=== PATIENT | female | born 1990 | race Caucasian/White ===

== ENCOUNTER 2016-10-16 02:03 | Inpatient (IN) | payer OTHER ==
--- NOTE | ~2016-10-16 | PN ---
Unit #: [id number] #: [id number] Patient: LORENA BLUM [id number] [facility] [address] [place] [address] [id number] MR#: [id number] NAME: LORENA BLUM ROOM: 73 Age: 26 Sex: F Admission Date: 10/16/2016 : 1990 Attending Physician: Eddie Cordero M.D. Admitting Physician: Eddie Cordero M.D. Primary Care Physician: Kamaljit Arauz PROGRESS NOTES DATE 10/17/2016. DISCUSSION Lorena continues to have severe withdrawal symptoms, primarily nausea that she complains about today. She also had difficulty sleeping. She is alert and fully oriented. Her memory and concentration are fair to good. Her thought processes are goal directed with no active psychosis. She is equivocal about suicidal ideation today. ASSESSMENT Alcohol dependence. PLAN Continue current treatment plan and precautions. Dictated by... Eddie Cordero M.D. MRH/gz TD: 10/17/2016 13:56 JOB #: [id number] [facility] PROGRESS NOTES Page 1 of 1 X Eddie Cordero MD PROGRESS NOTE
--- NOTE | ~2016-10-16 | PN ---
Unit #: [id number] #: [id number] Patient: LORENA BLUM [id number] [facility] [address] [place] [address] [id number] MR#: [id number] NAME: LORENA BLUM ROOM: P173 Age: 26 Sex: F Admission Date: 10/16/2016 : 1990 Attending Physician: Eddie Cordero M.D. Admitting Physician: Eddie Cordero M.D. Primary Care Physician: Kamaljit Arauz PROGRESS NOTES DATE OF SERVICE: 10/19/2016 DISCUSSION Lorena continues to have esrt-bo-[id number] detox symptoms today. Her mood remains mild lability with a congruent affect. She is alert and fully oriented. Memory and concentration were fair. Thought processes were goal directed and nonpsychotic. EKG was unremarkable. ASSESSMENT Bipolar disorder, polysubstance dependence. PLAN We will draw a lithium level in the morning and continue current medications. Dictated by... Kamaljit Barber/reynaldo TD: 10/20/2016 04:49 JOB #: [id number] [facility] PROGRESS NOTES Page 1 of 1 X Eddie Cordero MD X PROGRESS NOTE
--- NOTE | ~2016-10-16 | PN ---
Unit #: [id number] #: [id number] Patient: LORENA BLUM [id number] [facility] [address] [place] [address] [id number] MR#: [id number] NAME: LORENA BLUM ROOM: P173 Age: 26 Sex: F Admission Date: 10/16/2016 : 1990 Attending Physician: Eddie Cordero M.D. Admitting Physician: Eddie Cordero M.D. Primary Care Physician: Kamaljit Arauz PROGRESS NOTES DATE 10/20/2016 DISCUSSION Lorena continues to complain of anxiety and irritability. Her detox has improved although her hypertension continues to be a problem. She is alert and fully oriented. Her memory and concentration are fair. Her thought processes are goal-directed with no active psychosis. ASSESSMENT Alcohol dependence. Generalized anxiety disorder. PLAN We will initiate treatment with Buspirone and obtain medical consultation for hypertension. Dictated by... Eddie Codrero M.D. [facility]/aden TD: 10/26/2016 10:19 JOB #: [id number] [facility] PROGRESS NOTES Page 1 of 1 X Eddie Cordero MD PROGRESS NOTE
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
--- NOTE | ~2016-10-16 | HP ---
Unit #: [id number] #: [id number] Patient: LORENA LUI [id number] [place] [address] [id number] MR#: [id number] NAME: LORENA LUI ROOM: P173 Age: 26 Sex: F Admission Date: 10/16/2016 : 1990 Attending Physician: Eddie Cordero M.D. Admitting Physician: Eddie Cordero M.D. Primary Care Physician: Papa Byrd M.D. HISTORY AND PHYSICAL HISTORY OF PRESENT ILLNESS Lorena is a 26 year old admitted to [facility] because of her abuse of alcohol. She is detoxing. PAST MEDICAL HISTORY 1. Long history of alcohol abuse. 2. High blood pressure. 3. History of fatty liver. PAST SURGICAL HISTORY Nothing reported. ALLERGIES No known drug allergies. SOCIAL HISTORY Smokes 2 packs per day. Drinks at least 6 beers on a daily basis. Admits to using marijuana daily. FAMILY HISTORY Medically noncontributory. REVIEW OF SYSTEMS CONSTITUTIONAL: No fever or chills. HEENT: Denies any sore throat, ear pain or runny nose. CARDIOVASCULAR: Denies chest pain, irregular heart rhythm or palpitations. CHEST: Denies shortness of breath or cough. No hemoptysis. GASTROINTESTINAL: She does report frequent melena as recent as 1 week ago and hematochezia as recent as 2 months ago. She has never been scoped. ENDOCRINE: Denies history of increased thirst or urination. No recent significant weight loss or gain. GENITOURINARY: Denies dysuria, frequency, or hematuria. SKIN: Denies any rashes. HEMATOLOGIC: Denies history of increased bleeding or bruising. MUSCULOSKELETAL: Denies any hot, swollen joints. No generalized muscle pain. NEUROLOGIC: Denies problems with vision or speech. No frequent, severe headaches. No numbness, tingling or weakness in any extremities. Denies loss of bladder or bowel control. CURRENT MEDICATIONS Detox protocol. Unit #: [id number] #: [id number] Patient: LORENA LUI PHYSICAL EXAMINATION GENERAL: Alert, thin, pale, in no apparent distress. VITAL SIGNS: Blood pressure 115/80, heart rate 100, respirations 16, temperature 98.6. WEIGHT: 125. HEIGHT: 5 feet 5 inches. SKIN: Warm and dry without rash or lesion. HEENT: Normocephalic. TMs not viewed. Oral and nasal passages clear. Conjunctivae clear. PERRLA. EOMs intact. NECK: Supple without lymphadenopathy or thyromegaly. HEART: Regular rate and rhythm without murmur. LUNGS: Clear. ABDOMEN: Soft, nontender. : Not done. EXTREMITIES: No evidence of cyanosis, clubbing or edema. Moves all without focal deficit. NEUROLOGICAL: Grossly within normal limits. Cranial Nerves: II: Visual lui are intact. III, IV AND : Extraocular movements are intact. Pupils are equal, round and reactive to light. V: Facial sensation is grossly normal. VII: Facial movements and expression are normal. VIII: Auditory acuity grossly intact. IX, X: Uvula is midline. Phonation is normal. XI: Patient shrugs shoulders and turns head normally. XII: Tongue protrudes in the midline. Sensory and Motor Function: Sensory and motor sensation is grossly normal. Motor: moves all extremities well. Coordination: Gait is normal. Deep Tendon Reflexes: Intact. DIAGNOSTIC STUDIES LABORATORY DATA: Admission labs, H/H 7.4/24.1, RDW 18.4, MCH 27.5, platelets 144. IMPRESSION 1. Psychiatric admission. 2. Long history of alcohol abuse. 3. Significant anemia, most likely secondary to alcoholic gastritis. RECOMMENDATIONS PSYCHIATRIC: Per psychiatrist. MEDICAL: 1. See no contraindications to participate in facility's activities. 2. Detox per protocol. 3. Add Carafate 1 gram p.o. t.i.d. and Nexium 40 mg 1 p.o. b.i.d. 4. Patient understands the significance of her anemia. She knows that she will need to follow up with PCP or been seen in the emergency room at time of discharge. She will need complete workup upper and lower scopes. MEDICAL PROGNOSIS Good in the short term. MEDICAL CONDITION Stable. Unit #: [id number] #: [id number] Patient: LORENA LUI Dictated by... Lo Becker P.A.-C. for Kamaljit Baeza/jack TD: 10/16/2016 17:34 JOB #: [id number] HISTORY AND PHYSICAL Page 1 of 1 X Lo Becker HISTORY AND PHYSICAL
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
[2016-10-16 09:54] LABS: BASOPHIL# 0.1 X10e3 (0-0.3); BASOPHIL% 0.7 % (0-2.5); EOSINOPHIL# 0.1 X10e3 (0-0.7); EOSINOPHIL% 1.7 % (0.0-7.0); HEMATOCRIT 24.1 % (35.0-45.0); HEMOGLOBIN 7.4 gm/dL (12.0-16.0); LYMPHOCYTE# 1.7 X10e3 (1.0-3.5); LYMPHOCYTE% 23.1 % (17.0-45.0); MEAN CELL VOLUME 90.1 FL (83-96); MEAN CORPUSCULAR HEMOGLOBIN 27.5 PG (28-34); MEAN CORPUSCULAR HGB CONC 30.5 g/dL (30-36); MONOCYTE# 0.8 X10e3 (0-1.0); MONOCYTE% 11.1 % (3.0-12.0); NEUTROPHIL# 4.8 X10e3 (1.5-7.1); NEUTROPHIL% 63.4 % (40-75); PLATELET COUNT 144 X10e3 (140-420); RED BLOOD COUNT 2.68 X10e (3.90-5.30); RED CELL DISTRIBUTION WIDTH 18.4 % (11.0-15.5); WHITE BLOOD COUNT 7.5 X10e3 (4.0-10.5)
[2016-10-16 09:55] LABS: DIFF IND YES
[2016-10-16 10:04] LABS: THYROID STIMULATING HORMONE 2.43 uIU/ml (0.34-5.60)
[2016-10-16 10:11] LABS: FREE THYROXIN (T4) 1.2 ng/dL (0.58-1.64)
[2016-10-16 10:23] LABS: ALBUMIN SERUM 2.8 g/dL (3.5-5.0); ALKALINE PHOSPHATASE 94 U/L (32-92); ALT (SGPT) 19 U/L (10-40); AST (SGOT) 75 U/L (10-42); BILIRUBIN,TOTAL 1.2 mg/dL (0.2-2.0); BLOOD UREA NITROGEN <5 mg/dL (9-23); CALCIUM SERUM 8.5 mg/dL (8.4-10.2); CARBON DIOXIDE 25 mmol/L (22-31); CHLORIDE 105 mmol/L (100-111); CREATININE SERUM 0.5 mg/dL (0.6-1.4); GLOM FILT RATE Estimated 132.7 mL/min (>60); GLUCOSE FASTING 86 mg/dL (70-110); POTASSIUM 4.3 mmol/L (3.5-5.1); PROTEIN TOTAL SERUM 7.7 g/dL (6.0-8.3); SODIUM 138 mmol/L (135-145)
[2016-10-16 10:39] LABS: PLATELET ESTIMATE NORMAL (NORMAL)
[2016-10-16 10:42] LABS: ANISOCYTOSIS SL; SCHISTOCYTES PRESENT; TARGET CELLS MOD
[2016-10-20 09:38] LABS: ALBUMIN SERUM 2.4 g/dL (3.5-5.0); BILIRUBIN,TOTAL 1.2 mg/dL (0.2-2.0); BUN/CREATININE RATIO 8.33; CALCIUM SERUM 8.3 mg/dL (8.4-10.2); CREATININE SERUM 0.6 mg/dL (0.6-1.4); GLOM FILT RATE Estimated 124.9 mL/min (>60); POTASSIUM 4.5 mmol/L (3.5-5.1); PROTEIN TOTAL SERUM 6.5 g/dL (6.0-8.3)
== END 2016-10-23 12:40 | disposition home or self-care (01) | DRG 897 ==
LOC: P1E 02:03
PROVIDERS: Psychiatry & Neurology Psychiatry
PROC: HZ2ZZZZ Detoxification Services for Substance Abuse Treatment (ICD-10-PCS; principal; 2016-10-16)
DX: F10.230 Alcohol dependence with withdrawal, uncomplicated (principal); F31.9 Bipolar disorder, unspecified; I10 Essential (primary) hypertension
CPT/HCPCS: 80053; 80178; 84439; 84443; 84703; 85025; 86592